=== PATIENT | female | born 1990 | race Caucasian/White ===

== ENCOUNTER 2016-05-08 19:37 | Emergency (ER) | payer OTHER ==
[~2016-05-08] VITALS: Ht 180.3 cm; Wt 49.9 kg
[2016-05-08 20:12] VITALS: BP 103/61
== END 2016-05-08 22:21 | disposition home or self-care (01) ==
LOC: ER 19:48
DX: J02.9 Acute pharyngitis, unspecified (principal); Z91.018 Allergy to other foods
CPT/HCPCS: 86403-TC; A4606; Z7610

== ENCOUNTER 2017-04-25 03:25 | Emergency (ER) | payer OTHER ==
[~2017-04-25] VITALS: Ht 149.9 cm; Wt 54.4 kg
--- NOTE | 2017-04-25 03:42 | NUR ---
DR HARRISON AT BEDSIDE TO EVALUATE PATIENT.
[2017-04-25] MEDS ORDERED: ONDANSETRON HCL/PF 4 MG/2 ML VIAL ONE (03:54)
--- NOTE | 2017-04-25 03:58 | NUR ---
STARTED A SALINE LOCK ON THE LAC G20, BLOOD DRAWN AND SENT TO LAB.
[2017-04-25] MEDS ORDERED: ONDANSETRON HCL/PF 4 MG/2 ML VIAL IVP ONE (04:00)
[2017-04-25] MEDS ORDERED: IV NS 0.9% 1,000 ML BAG IV ONE (04:00)
--- NOTE | 2017-04-25 04:02 | NUR ---
MEDICATED PATIENT ORDERED BY DR HARRISON.
[2017-04-25 04:27] LABS: BILIRUBIN,TOTAL 0.4 mg/dL (0.2-1.0); CREATININE 0.8 mg/dL (0.6-1.3); TOTAL PROTEIN, SERUM 8.4 g/dL (6.4-8.2)
[2017-04-25 04:44] LABS: APPEARANCE,URINE SL CLOUDY (CLEAR); BILIRUBIN,URINE 1+ (NEGATIVE); BLOOD, URINE 3+ Ery/uL (NEGATIVE); COLOR,URINE YELLOW (YELLOW); KETONES,URINE 1+ (NEGATIVE); LEUKOCYTE ESTERASE ,URINE NEGATIVE (NEGATIVE); NITRITE, URINE NEGATIVE (NEGATIVE); PROTEIN,URINE TRACE mg/dl (NEGATIVE); UGLUCOSE NEGATIVE (NEGATIVE); UROBILINOGEN,URINE 0.2 EU/dL (0.2)
[2017-04-25 04:56] LABS: BACTERIA,URINE None seen /HPF (None Seen); MUCUS,URINE Few /LPF (None Seen)
[2017-04-25 04:57] LABS: SQUAMOUS EPITHELIAL CELL,UR Moderate /HPF (None Seen)
[2017-04-25 05:04] LABS: BASOPHILS % (AUTO) 0.3 % (0.0-2.0); EOSINOPHILS # (AUTO) 0.2 /CMM (0.0-0.7); EOSINOPHILS % (AUTO) 1.5 % (0.0-6.0); HEMATOCRIT 41 % (33-45); HEMOGLOBIN 13.7 g/dL (11.5-14.8); LYMPHOCYTES # (AUTO) 0.8 /CMM (0.8-4.8); LYMPHOCYTES % (AUTO) 4.9 % (20.0-44.0); MEAN CORPUSCULAR HEMOGLOBIN 28 PG (26.0-33.0); MEAN CORPUSCULAR HGB CONC 34 g/dl (31.0-36.0); MEAN CORPUSCULAR VOLUME 84 fL (82-100); MONOCYTES # (AUTO) 0.7 /CMM (0.1-1.30); MONOCYTES % (AUTO) 4.4 % (2.0-12.0); NEUTROPHILS # (AUTO) 14.1 /CMM (1.8-8.9); NEUTROPHILS % (AUTO) 88.9 % (43.0-81.0); PLATELET COUNT (AUTO) 523 /CMM (150-450); RDW COEFFICIENT OF VARIATION 12.6 (11.5-15.0); RED BLOOD CELL COUNT(AUTO) 4.82 MIL/uL (4.0-5.2); WHITE BLOOD COUNT (AUTO) 15.8 K/uL (4.3-11.0)
--- NOTE | 2017-04-25 05:57 | NUR ---
DR. HARRISON OK'D PT TO HAVE WATER. PT REC'D WATER REQUESTED AND TOLERATED PO WELL.
[2017-04-25] MEDS ORDERED: HYDROCODONE/APAP 5/325MG 1 EACH TABLET PO ONE (06:00)
[2017-04-25] MEDS ORDERED: HYDROCODONE/APAP 5/325MG 1 EACH TABLET ONE (06:03)
--- NOTE | 2017-04-25 06:08 | NUR ---
IV removed. Catheter intact and site benign. Pressure and 4x4 applied to site. No bleeding noted.
--- NOTE | 2017-04-25 06:11 | NUR ---
Patient discharged to home in stable condition. Written and verbal after care instructions given. Patient verbalizes understanding of instruction AND RX. PT REC'D A COPY OF ALL LABS, IMAGING, AND EKG. PT AMBULATED OUT WITH A STEADY GAIT. PT'S BOYFRIEND IS DRIVING PT HOME. VSS. PT WAS INSTRUCTED NOT TO DRIVE WHILE TAKING [place].
[2017-04-25 06:16] VITALS: BP 112/62
== END 2017-04-25 06:18 | disposition home or self-care (01) ==
LOC: ER 03:27
DX: R11.2 Nausea with vomiting, unspecified (principal); R19.7 Diarrhea, unspecified; R10.12 Left upper quadrant pain; R07.9 Chest pain, unspecified; Z91.018 Allergy to other foods
CPT/HCPCS: 36415; 71010; 76770; 80048; 80076; 81001; 83690; 84703; 85025; 93005; 96361; 96374; 99285; A4606; J2405; J7030; Z7610; 81000-TC

== ENCOUNTER 2023-02-14 08:44 | Emergency (ER) | payer MEDICAID, OTHER ==
[~2023-02-14] VITALS: Ht 149.9 cm; Wt 59.0 kg
[2023-02-14 08:49] VITALS: BP 101/68; TEMP 98.4; O2SAT 100
[2023-02-14] MEDS ORDERED: IBUP-1955 PO (09:47)
[2023-02-14] MEDS ORDERED: CEPH500C2 PO (09:47)
[2023-02-14] MEDS ORDERED: SULF1TAB48 PO (09:47)
== END 2023-02-14 09:51 | disposition home or self-care (01) ==
LOC: ER 08:44
DX: L03.012 Cellulitis of left finger (principal); Z91.018 Allergy to other foods